=== PATIENT | female | born 1990 | race Asian ===

== ENCOUNTER → 2017-12-16 | Outpatient (CLI) | payer OTHER ==
[~2017-12-16] MED LIST: ACYC200O6 PO; DOCU-131 PO; IBUP-1222 PO; PREN1TAB60 PO
== END | disposition home or self-care (01) ==
LOC: CFH 07:53
PROVIDERS: ATTEND Family Medicine
DX: R10.816 Epigastric abdominal tenderness (principal)
CPT/HCPCS: 76705